=== PATIENT | male | born 1990 | race Hispanic/Latino ===

== ENCOUNTER → 2018-03-12 | Outpatient (REF) | payer OTHER ==
[2018-03-12 19:11] LABS: AMORPHOUS SEDIMENT MODERATE (NEGATIVE); APPEARANCE, URINE TURBID (CLEAR); BACTERIA, URINE AUTO NEGATIVE (NEGATIVE); BILIRUBIN, URINE AUTO NEGATIVE (NEGATIVE); BLOOD, URINE BLOOD NEGATIVE (NEGATIVE); COLOR, URINE YELLOW (YELLOW); GLUCOSE, URINE (UA) AUTO NEGATIVE (NEGATIVE); KETONE, URINE AUTO NEGATIVE (NEGATIVE); LEUKOCYTE ESTERASE, URINE AUTO NEGATIVE (NEGATIVE); NITRITE, URINE AUTO NEGATIVE (NEGATIVE); PROTEIN, URINE AUTO NEGATIVE (NEGATIVE); RBC, URINE AUTO 0 /HPF (0-3); SPECIFIC GRAVITY URINE AUTO 1.026 (1.002-1.035); SQUAMOUS EPITHELIAL CELL UR AU 0 /HPF (0-6); UROBILINOGEN, URINE AUTO 0.2 mg/dL (0.0-2.0); WBC, URINE AUTO 0 /HPF (0-3)
== END ==
LOC: M SMT 17:26
DX: R36.1 Hematospermia (principal)
CPT/HCPCS: 81001

== ENCOUNTER → 2018-03-20 | Outpatient (CLI) | payer OTHER ==
[~2018-03-20] MED LIST: ISOVUE-370 76% 100ML VIAL (Q9967) As Ordered
== END ==
LOC: M RAD 15:24
DX: R31.0 Gross hematuria (principal); N42.0 Calculus of prostate
CPT/HCPCS: Q9967

== ENCOUNTER → 2018-07-17 | Outpatient (REF) | payer OTHER ==
[2018-07-17 11:49] LABS: APPEARANCE, URINE HAZY (CLEAR); BACTERIA, URINE AUTO NEGATIVE (NEGATIVE); BILIRUBIN, URINE AUTO NEGATIVE (NEGATIVE); BLOOD, URINE BLOOD 3+ (NEGATIVE); COLOR, URINE YELLOW (YELLOW); GLUCOSE, URINE (UA) AUTO NEGATIVE (NEGATIVE); KETONE, URINE AUTO NEGATIVE (NEGATIVE); LEUKOCYTE ESTERASE, URINE AUTO NEGATIVE (NEGATIVE); MUCUS, URINE SMALL (NEGATIVE); NITRITE, URINE AUTO NEGATIVE (NEGATIVE); PROTEIN, URINE AUTO NEGATIVE (NEGATIVE); RBC, URINE AUTO 135 /HPF (0-3); SPECIFIC GRAVITY URINE AUTO 1.024 (1.002-1.035); SQUAMOUS EPITHELIAL CELL UR AU 0 /HPF (0-6); UROBILINOGEN, URINE AUTO 0.2 mg/dL (0.0-2.0); WBC, URINE AUTO 0 /HPF (0-3)
[2018-07-17 12:58] LABS: SEMEN APPEARANCE BLOODY (OPAQUE); SEMEN VISCOSITY VISCOUS (LIQUID)
[2018-07-17 12:59] LABS: SEMEN WBC >1 M/ml (<=1 M/ml)
== END ==
LOC: M SMT 10:27
PROVIDERS: ATTEND Nurse Practitioner Family
DX: R36.1 Hematospermia (principal); R31.0 Gross hematuria

== ENCOUNTER → 2018-08-06 | Outpatient (CLI) | payer OTHER ==
[~2018-08-06] MED LIST changes: -ISOVUE-370 76% 100ML VIAL (Q9967) As Ordered; +PROHANCE 279.3MG/ML 15ML VIAL (A9576) As Ordered ONE
--- NOTE | 2018-08-06 14:15 | REP ---
MRI PELVIS WITHOUT AND WITH IV GADOLINIUM: HISTORY: Gross hematuria. Hematospermia. Comparison CT study March 20, 2018. Gadolinium enhancement dose is 14 mL of intravenous ProHance. MRI TECHNIQUE: Limited field of view high resolution MRI imaging of the pelvis and prostate are acquired with sequences including spin echo, fast spin echo, diffusion and postcontrast imaging. MRI FINDINGS: Cortical and medullary bone signal intensity is normal in the visualized bony pelvic structures. The prostate is normal in size overall. There is a midline cyst in the prostate gland at mid gland and extending upward towards the base posteriorly. This measures 17 mm in craniocaudal span x 13 mm anterior to posterior x 8 mm medial to lateral dimension. This is shows T1 hyperintensity and T2 hyperintensity. There does not appear to be any contrast enhancement within it. The prostate and seminal vesicles are otherwise unremarkable. Urinary bladder appears normal on pre- and postcontrast images. No pelvic mass or adenopathy is seen. Study is otherwise unremarkable. 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 It is not possible to tell whether this cyst communicates with the urethra. No other abnormality. Electronically Signed by Kenroy Hicks MD 08/06/2018 02:27 P
== END ==
LOC: M RAD 10:35
PROVIDERS: ATTEND Nurse Practitioner Family
DX: N42.83 Cyst of prostate (principal); R36.1 Hematospermia
CPT/HCPCS: 72197; A9576

== ENCOUNTER → 2019-04-19 | Outpatient (REF) | payer OTHER | LOC: M SMT 17:52 | PROVIDERS: ATTEND Urology | DX: R36.1 Hematospermia (principal) ==

== ENCOUNTER → 2020-01-05 | Outpatient (REF) | payer OTHER ==
[2020-01-05 13:55] LABS: APPEARANCE, URINE CLEAR (CLEAR); BACTERIA, URINE AUTO NEGATIVE (NEGATIVE); BILIRUBIN, URINE AUTO NEGATIVE (NEGATIVE); BLOOD, URINE BLOOD NEGATIVE (NEGATIVE); COLOR, URINE YELLOW (YELLOW); GLUCOSE, URINE (UA) AUTO NEGATIVE (NEGATIVE); KETONE, URINE AUTO NEGATIVE (NEGATIVE); LEUKOCYTE ESTERASE, URINE AUTO NEGATIVE (NEGATIVE); NITRITE, URINE AUTO NEGATIVE (NEGATIVE); PROTEIN, URINE AUTO NEGATIVE (NEGATIVE); RBC, URINE AUTO 0 /HPF (0-3); SPECIFIC GRAVITY URINE AUTO 1.027 (1.002-1.035); SQUAMOUS EPITHELIAL CELL UR AU 0 /HPF (0-6); UROBILINOGEN, URINE AUTO 0.2 mg/dL (0.0-2.0); WBC, URINE AUTO 1 /HPF (0-3)
== END ==
LOC: M LAB REF 09:52
PROVIDERS: ATTEND Nurse Practitioner Family
DX: N39.0 Urinary tract infection, site not specified (principal)